=== PATIENT | male | born 1965 | race American Indian/Alaskan Native ===

== ENCOUNTER 2018-10-30 22:37 | Emergency (ER) | payer MEDICARE ==
[2018-10-31 00:26] LABS: Basophils % (Auto) 0.9 % (0.0-1.8); Eosinophils # (Auto) 0.1 K/mm3 (0.0-0.4); Eosinophils % (Auto) 2.2 % (0.0-4.3); Hematocrit 52.1 % (35.5-45.6); Hemoglobin 17.6 gm/dl (11.8-15.2); Lymphocytes # (Auto) 1.2 K/mm3 (1.2-5.4); Lymphocytes % (Auto) 21.9 % (13.4-35.0); Mean Corpuscular HGB Conc 34 % (32-34); Mean Corpuscular Volume 101 fl (84-94); Monocytes # (Auto) 0.7 K/mm3 (0.0-0.8); Monocytes % (Auto) 13.4 % (0.0-7.3); Platelet Count 124 K/mm3 (140-440); Red Blood Count 5.16 M/mm3 (3.65-5.03); Red Cell Distribution Width 15.1 % (13.2-15.2)
[2018-10-31 00:45] LABS: Albumin 4.4 g/dL (3.9-5); Calcium 10.2 mg/dL (8.4-10.2)
[2018-10-31] MEDS ORDERED: NORCO 5/325 PO ONE (02:02)
--- NOTE | 2018-10-31 02:10 | Emergency Department Report ---
HPI - General Chief Complaint: GI Bleed Time Seen by Provider: 10/31/18 01:32 - HPI HPI: Room 26 The patient is a 53-year-old male presenting with chief complaint of blood in stool and bilateral lower extremity edema. The patient states he came to the emergency department because this evening he noticed bright red blood in his stool. The patient also noticed bilateral lower extremity edema for one month. Patient denies any history of trauma. Patient denies fever and chest pain but admits to shortness of breath since yesterday. Patient admits to a cough for the past 2 days but states it is nonproductive. Patient complains of pain in his lower extremity from the swelling is a score of 8/10. The patient states the redness in his legs has been present for 1 month Location: [See above] Duration: [See above] Quality: [See above] Severity: [See above] Timing: [See above] Context: [See above] Modifying factors: [See above] Associated signs and symptoms: [see above] ED Past Medical Hx - Past Medical History Previous Medical History?: Yes Additional medical history: Bilateral DVT, PE - Surgical History Additional Surgical History: Open heart surgery for PE - Family History Family history: no significant - Social History Smoking Status: Current Every Day Smoker (1/2 pack per day) Substance Use Type: None (denies illicit drug use), Alcohol (occasional) - Medications Home Medications: Home Medications Medication Instructions Recorded Confirmed Last Taken Type Apixaban [Eliquis] 5 mg PO BID #74 tablet 10/31/18 Unknown Rx HYDROcodone/APAP 5-325 [[place] 1 each PO Q6HR PRN #10 tablet 10/31/18 Unknown Rx 5/325] Hydrocortisone [Anucort-HC SUPPOS] 25 mg RC BID #10 supp.rect 10/31/18 Unknown Rx ED Review of Systems ROS: Stated complaint: BLOOD IN STOOL, SWOLLEN LEGS Other details as noted in HPI Constitutional: denies: fever Eyes: denies: eye pain ENT: denies: throat pain Respiratory: cough, shortness of breath Cardiovascular: denies: chest pain Endocrine: no symptoms reported Gastrointestinal: denies: abdominal pain Genitourinary: denies: dysuria Musculoskeletal: myalgia Skin: denies: rash Neurological: denies: headache Physical Exam - Physical Exam Vital Signs: Vital Signs 10/30/18 23:57 Temperature 98 F Pulse Rate 78 Respiratory 18 Rate Blood Pressure 165/100 O2 Sat by Pulse 100 Oximetry Physical Exam: GENERAL: The patient is well-developed well-nourished male lying on stretcher not appearing to be in acute distress. [] HEENT: Normocephalic. Atraumatic. Extraocular motions are intact. Patient has moist mucous membranes. NECK: Supple. Trachea midline CHEST/LUNGS: Clear to auscultation. There is no respiratory distress noted. HEART/CARDIOVASCULAR: Regular. There is no tachycardia. There is no gallop rub or murmur. ABDOMEN: Abdomen is soft, nontender. Patient has normal bowel sounds. There is no abdominal distention. SKIN: There is swelling of bilateral lower extremities with an erythematous base above the distal hyperpigmentation bilateral shins. There is 1+ bilateral lower pitting edema. There is no diaphoresis. NEURO: The patient is awake, alert, and oriented. The patient is cooperative. The patient has normal speech MUSCULOSKELETAL: There is no evidence of acute injury. ED Course Vital Signs 10/30/18 23:57 Temperature 98 F Pulse Rate 78 Respiratory 18 Rate Blood Pressure 165/100 O2 Sat by Pulse 100 Oximetry ED Medical Decision Making - Lab Data Result diagrams: 10/31/18 00:09 10/31/18 02:06 Laboratory Tests 10/31/18 10/31/18 10/31/18 00:09 00:09 01:48 WBC 5.4 RBC 5.16 H Hgb 17.6 H Hct 52.1 H MCV 101 H MCH 34 H MCHC 34 RDW 15.1 Plt Count 124 L Lymph % (Auto) 21.9 [place] % (Auto) 13.4 H Eos % (Auto) 2.2 Baso % (Auto) 0.9 Lymph # 1.2 [place] # 0.7 Eos # 0.1 Baso # 0.0 Seg Neutrophils % 61.6 Seg Neutrophils # 3.3 PT 13.5 INR 1.06 APTT 25.7 D-Dimer 2395.45 H Sodium 139 Potassium 5.5 H Chloride 96.5 L Carbon Dioxide 27 Anion Gap 21 BUN 10 Creatinine 1.3 Estimated GFR 58 BUN/Creatinine Ratio 8 Glucose 91 Calcium 10.2 Total Bilirubin 1.40 H AST 17 ALT 10 Alkaline Phosphatase 121 NT-Pro-B Natriuret Pep Total Protein 8.9 H Albumin 4.4 Albumin/Globulin Ratio 1.0 10/31/18 10/31/18 01:48 02:06 WBC RBC Hgb Hct MCV MCH MCHC RDW Plt Count Lymph % (Auto) [place] % (Auto) Eos % (Auto) Baso % (Auto) Lymph # [place] # Eos # Baso # Seg Neutrophils % Seg Neutrophils # PT INR APTT D-Dimer Sodium Potassium 4.5 Chloride Carbon Dioxide Anion Gap BUN Creatinine Estimated GFR BUN/Creatinine Ratio Glucose Calcium Total Bilirubin AST ALT Alkaline Phosphatase NT-Pro-B Natriuret Pep 24.92 Total Protein Albumin Albumin/Globulin Ratio - Radiology Data Radiology results: report reviewed (CT chest), image reviewed (CT chest) [facility] [address] [place] [address] Cat Scan Report Signed Patient: MARGRET PEREZ MR#: [id number] : 1965 Acct:[id number] Age/Sex: 53 / M ADM Date: 10/30/18 Loc: ED Att ending Dr: Ordering Physician: RONI SEE MD Date of Service: 10/31/18 Procedure(s): CT angio chest Accession Number(s): [id number] cc: RONI SEE MD CTA CHEST WITH IV CONTRAST INDICATION: shortness of breath. TECHNIQUE: Axial CT images were obtained through the chest after injection of 100 cc Omnipaque 350 IV contrast. 3 plane MIP reconstructions were produced. All CT scans at this location are performed using CT dose reduction for ALARA by means of automated exposure control. COMPARISON: None available. FINDINGS: PULMONARY ARTERIES: No pulmonary emboli. THORACIC AORTA: No acute abnormality. HEART: Median sternotomy. Heart is normal in size. CORONARY ARTERIES: CABG PLEURA: No pleural effusion. No pneumothorax. LYMPH NODES: No significant adenopathy. LUNGS: Mild pulmonary emphysema. ADDITIONAL FINDINGS: None. UPPER ABDOMEN: No acute findings. IVC filter SKELETAL STRUCTURES: No significant osseous abnormality. IMPRESSION: 1. No CT evidence for pulmonary embolism. 2. No acute findings. 3. Mild emphysema and previous CABG. Signer Name: Panfilo Morin MD Signed: 10/31/2018 4:41 AM Workstation Name: [id number] Transcribed By: TL Dictated By: Panfilo Morin MD Electronically Authenticated By: Panfilo Moirn MD Signed Date/Time: 10/31/18 0441 DD/ 0434 TD/TT: [facility] [address] [place] [address] Vascular Lab Report Signed Patient: MARGRET PEREZ MR#: [id number] : 1965 Acct:[id number] Age/Sex: 53 / M ADM Date: 10/30/18 Loc: ED Attending Dr: Ordering Physician: RONI SEE MD Date of Service: 10/31/18 Procedure(s): VL venous duplex LE BILAT Accession Number(s): [id number] cc: RONI SEE MD DUPLEX DOPPLER LOWER EXTREMITY VEINS, BILATERAL INDICATION: Bilateral lower extremity pain and swelling. TECHNIQUE: Duplex doppler imaging was performed through the veins of both lower extremities using venous compression and other maneuvers. COMPARISON: No relevant prior imaging study available. FINDINGS: Partial compressibility is identified in the common femoral veins, superficial femoral veins and popliteal veins bilaterally suggesting chronic thrombotic residua. These have the appearance of chronic recannulized DVTs. There is noncompressibility and hypoechoic thrombus in right calf varicosities, right greater saphenous vein in the distal calf and left greater saphenous vein at the ankle consistent with acute superficial venous thrombosis. IMPRESSION: No convincing evidence for acute DVT. 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 Acute superficial venous thrombosis noted in the right calf varicosities, right greater saphenous vein in the distal calf and left greater saphenous vein at the ankle. Signer Name: Paresh Magana Jr, MD Signed: 10/31/2018 10:21 AM Workstation Name: [id number] Transcribed By: TTR Dictated By: PARESH MAGANA JR, MD Electronically Authenticated By: PARESH MAGANA JR, MD Signed Date/Time: 10/31/18 1021 DD/ 1015 TD/TT: - Differential Diagnosis peripheral edema, CHF, DVTs, renal failure, PE Critical care attestation.: If time is entered above; I have spent that time in minutes in the direct care of this critically ill patient, excluding procedure time. ED Disposition Clinical Impression: Bilateral lower extremity pain, Hemorrhoid, Rectal bleeding, Superficial thrombophlebitis of lower extremity Disposition: DC-01 TO HOME OR SELFCARE Is pt being admited?: No Does the pt Need Aspirin: No Condition: Stable Instructions: Hemorrhoids (ED), Rectal Bleeding (ED), Superficial Thrombophlebitis (ED) Additional Instructions: Return to the emergency department should you develop worsening symptoms, inability to tolerate food or liquids, high fever or any other concerns Prescriptions: Hydrocortisone [Anucort-HC SUPPOS] 25 mg RC BID #10 supp.rect Apixaban [Eliquis] 5 mg PO BID #74 tablet HYDROcodone/APAP 5-325 [[place] 5/325] 1 each PO Q6HR PRN #10 tablet PRN Reason: Pain Referrals: PRIMARY CARE, [Primary Care Provider] - 3-5 Days ANGELO AVITIA MD [Staff Physician] - 3-5 Days (Dr. Avitia is a admin assistant. Please follow up with him for further evaluation) Forms: Accompanied Note
[2018-10-31 02:21] LABS: INR 1.06 (0.87-1.13)
[2018-10-31 02:22] LABS: Partial Thromboplastin Time 25.7 Sec. (24.2-36.6)
[2018-10-31] MEDS ORDERED: NACL 0.9% 1000 ML 1,000 ML IV ONE (03:09)
--- NOTE | 2018-10-31 04:45 | Cat Scan Report ---
CTA CHEST WITH IV CONTRAST INDICATION: shortness of breath. TECHNIQUE: Axial CT images were obtained through the chest after injection of 100 cc Omnipaque 350 IV contrast. 3 plane MIP reconstructions were produced. All CT scans at this location are performed using CT dose reduction for ALARA by means of automated exposure control. COMPARISON: None available. FINDINGS: PULMONARY ARTERIES: No pulmonary emboli. THORACIC AORTA: No acute abnormality. HEART: Median sternotomy. Heart is normal in size. CORONARY ARTERIES: CABG PLEURA: No pleural effusion. No pneumothorax. LYMPH NODES: No significant adenopathy. LUNGS: Mild pulmonary emphysema. ADDITIONAL FINDINGS: None. UPPER ABDOMEN: No acute findings. IVC filter SKELETAL STRUCTURES: No significant osseous abnormality. IMPRESSION: 1. No CT evidence for pulmonary embolism. 2. No acute findings. 3. Mild emphysema and previous CABG. Signer Name: Panfilo Morin MD Signed: 10/31/2018 4:41 AM Workstation Name: [id number]
--- NOTE | 2018-10-31 10:26 | Vascular Lab Report ---
DUPLEX DOPPLER LOWER EXTREMITY VEINS, BILATERAL INDICATION: Bilateral lower extremity pain and swelling. TECHNIQUE: Duplex doppler imaging was performed through the veins of both lower extremities using ve nous compression and other maneuvers. COMPARISON: No relevant prior imaging study available. FINDINGS: Partial compressibility is identified in the common femoral veins, superficial femoral veins and popl iteal veins bilaterally suggesting chronic thrombotic residua. These have the appearance of chronic r ecannulized DVTs. There is noncompressibility and hypoechoic thrombus in right calf varicosities, right greater sapheno us vein in the distal calf and left greater saphenous vein at the ankle consistent with acute superfi cial venous thrombosis. IMPRESSION: No convincing evidence for acute DVT. Chronic thrombotic residua suspected in both femoral and popli teal veins suggesting chronic recannulized DVTs. Acute superficial venous thrombosis noted in the right calf varicosities, right greater saphenous vei n in the distal calf and left greater saphenous vein at the ankle. Signer Name: Paresh Magana Jr, MD Signed: 10/31/2018 10:21 AM Workstation Name: [id number]
[2018-10-31 11:09] VITALS: BP 92/63
== END 2018-10-31 11:00 | disposition home or self-care (01) ==
LOC: ED 22:37
DX: K64.9 Unspecified hemorrhoids (principal); I80.9 Phlebitis and thrombophlebitis of unspecified site; F17.200 Nicotine dependence, unspecified, uncomplicated
CPT/HCPCS: 36415; 71275; 80053; 82271; 83880; 84132; 85025; 85379; 85610; 85730; 93970; 99284; J7030; Q9967